=== PATIENT | female | born 1945 | race American Indian/Alaskan Native ===

== ENCOUNTER 2017-02-12 12:22 | Outpatient (CLI) | payer MEDICARE, OTHER ==
--- NOTE | 2017-02-12 14:37 | XRay Report ---
LEFT SHOULDER, 3 VIEWS History: Pain, injury. Findings: Osteopenia is appreciated. Chronic deformity of the distal left clavicle is noted which probably represents a chronic, healed fracture. There is no evidence for acute fracture or dislocation. Mild osteoarthritic changes are noted. The soft tissues are within normal limits. Impression: Suspected chronic injury to the distal left clavicle. Degenerative changes. Osteopenia. No acute process is noted.
== END 2017-02-12 12:23 | disposition home or self-care (01) ==
LOC: XRAY 12:22
PROVIDERS: ATTEND Psychiatry & Neurology Neurology
DX: M19.012 Primary osteoarthritis, left shoulder (principal); M85.812 Other specified disorders of bone density and structure, left shoulder

== ENCOUNTER 2018-04-08 16:17 | Emergency (ER) | payer MEDICARE ==
--- NOTE | 2018-04-08 19:21 | Cat Scan Report ---
FINAL REPORT PROCEDURE: CT HEAD/BRAIN WO CON TECHNIQUE: Computerized tomography of the head was performed without contrast material. HISTORY: Head trauma and pain COMPARISON: No prior studies are available for comparison. FINDINGS: There is no CT evidence of intracranial mass, hemorrhage, acute territorial infarction, or hydrocephalus. The intracranial arteries are symmetric in density. Calvarium is intact. The visualized paranasal sinuses and mastoids are aerated. IMPRESSION: No CT evidence of acute abnormality
[2018-04-08] MEDS ORDERED: TYLENOL ONE (20:12)
[2018-04-08] MEDS ORDERED: TYLENOL PO ONE (20:14)
--- NOTE | 2018-04-08 21:31 | Emergency Department Report ---
ED General Adult HPI - General Chief complaint: Fall Stated complaint: FALL INJURY Time Seen by Provider: 04/08/18 21:29 Source: patient Mode of arrival: Ambulatory Limitations: No Limitations - History of Present Illness Initial comments: 72-year-old woman complains of injury to head, lumbar area back, and right forearm as a result of falling to the ground from a chair height, when the chair she was sitting in at home in her kitchen, while talking on the phone, and the chair simply broke and collapsed beneath her. She reports that she struck her head against a stone on the way down, but had no loss of consciousness, has no focal neurologic symptoms; and she landed on her buttock, with discomfort in her left mid to upper sacral area. She also has some moderate back discomfort, and moderate right neck discomfort extending into her right lateral shoulder. She also struck her right forearm on the way down. She has a past history of a pin in her right arm secondary to a prior fracture, is concerned about injury to this, and has diffuse pain across her lower back as well. She has no bowel or bladder symptoms, but she has some mild to moderate discomfort in her lower abdomen in the suprapubic and inguinal area. Past medical history is significant for blood clots, and she had undescribed throat surgery 40 years ago. Severity scale (0 -10): 10 - Related Data Previous Rx's Medication Instructions Recorded Last Taken Type Acetaminophen/Codeine [Tylenol 1 - 2 tab PO Q6H PRN #20 tab 04/09/18 Unknown Rx /Codeine # 3 tab] Allergies Allergy/AdvReac Type Severity Reaction Status Date / Time No Known Allergies Allergy Verified 05/14/14 10:03 ED Review of Systems ROS: Stated complaint: FALL INJURY Other details as noted in HPI ED Past Medical Hx - Past Medical History Previous Medical History?: Yes Hx Deep Vein Thrombosis: Yes Additional medical history: Varicose veins - Surgical History Past Surgical History?: Yes Additional Surgical History: Throat surgery 40 years ago - Social History Smoking Status: Never Smoker Substance Use Type: None - Medications Home Medications: Home Medications Medication Instructions Recorded Confirmed Last Taken Type Acetaminophen/Codeine [Tylenol 1 - 2 tab PO Q6H PRN #20 tab 04/09/18 Unknown Rx /Codeine # 3 tab] ED Physical Exam - General Limitations: No Limitations ED Course Vital Signs 08/06/1604/08/18 04/08/18 17:17 21:15 23:00 Temperature 37.1 C 36.4 C Pulse Rate 50 L 83 82 Respiratory 16 18 13 Rate Blood Pressure 114/81 124/84 Blood Pressure 127/84 [Right] O2 Sat by Pulse 97 99 97 Oximetry 04/08/18 04/09/18 23:52 01:00 Temperature Pulse Rate 83 Respiratory 18 15 Rate Blood Pressure 129/80 Blood Pressure [Right] O2 Sat by Pulse 96 Oximetry ED Medical Decision Making - Radiology Data Radiology results: report reviewed (CT scan of head without contrast shows no acute go fracture or acute intracranial injury.) interpreted by me: CT cervical spine reviewed by myself, shows no acute abnormalities of the bony spine, no surrounding soft tissue, although there is mild straightening of the lordotic curve. Note is made of moderate facet osteoarthritis. This is generalized. - Medical Decision Making Patient has several contusions, cervical strain, but no fractures, and will be treated symptomatically with analgesics, rest, heating pads. Critical Care Time: No Critical care attestation.: If time is entered above; I have spent that time in minutes in the direct care of this critically ill patient, excluding procedure time. ED Disposition Clinical Impression: Scalp contusion Qualifiers: Encounter type: initial encounter Qualified Code(s): S00.03XA - Contusion of scalp, initial encounter Acute cervical myofascial strain Qualifiers: Encounter type: initial encounter Qualified Code(s): S16.1XXA - Strain of muscle, fascia and tendon at neck level, initial encounter Contusion of forearm, right Qualifiers: Encounter type: initial encounter Qualified Code(s): S50.11XA - Contusion of right forearm, initial encounter Contusion of buttock Qualifiers: Encounter type: initial encounter Qualified Code(s): S30.0XXA - Contusion of lower back and pelvis, initial encounter Disposition: -01 TO HOME OR SELFCARE Is pt being admited?: No Does the pt Need Aspirin: No Condition: Stable Instructions: Muscle Strain (ED), Contusion in Adults (ED) Additional Instructions: Heating pad will also help with areas of discomfort, generally moderate heat, 15 -30 minutes at a time, 3-4 times per day. Gentle stretching and regular activity after about 2 or 3 days will generally helpful to regain limberness and normal mobility Have recheck by your doctor in a week to see how you're doing. Prescriptions: Acetaminophen/Codeine [Tylenol /Codeine # 3 tab] 1 - 2 tab PO Q6H PRN #20 tab PRN Reason: Pain , Severe (7-10) Referrals: DAMIEN MAURO MD [Primary Care Provider] - 3-5 Days Time of Disposition: 03:09
--- NOTE | 2018-04-08 23:26 | XRay Report ---
FINAL REPORT EXAM: XR FOREARM RT HISTORY: pain, injury status post fall from a chair. TECHNIQUE: Frontal and lateral views right forearm FINDINGS: There is no evidence of fracture or subluxation. There appears to be soft tissue swelling on the dorsal aspect of the forearm. IMPRESSION: 1. Soft tissue swelling without evidence of fracture or subluxation
--- NOTE | 2018-04-08 23:28 | XRay Report ---
FINAL REPORT EXAM: XR SPINE LUMBOSACRAL 2-3V HISTORY: pain low back, hx fall TECHNIQUE: Frontal and lateral views lumbar spine and coned-down lateral view lumbosacral junction Comparison: None FINDINGS: Bony alignment is normal. The vertebral heights are maintained. The disc spaces appear to be maintained. There is no evidence of fracture or subluxation. The paraspinous soft tissues are unremarkable. IMPRESSION: 1. No plain film evidence of fracture or subluxation. Lumbar spine fractures can be missed with plain film imaging. If there is a persistent clinical concern for fracture, CT imaging would be helpful.
[2018-04-08] MEDS ORDERED: NORCO 10/325 PO ONE (23:34)
[2018-04-09 01:50] VITALS: BP 129/80
--- NOTE | 2018-04-09 02:31 | XRay Report ---
FINAL REPORT EXAM: XR PELVIS 1-2V HISTORY: sacral pain, fall chair/sitting level TECHNIQUE: AP view of the pelvis and 1 additional coned view of the left hip PRIORS: None. FINDINGS: The pelvic bones are normally mineralized and aligned without focal lesions or fracture. SI joints appear normal. The bilateral hips appear normal. There is no evidence of acute fracture. The soft tissues are unremarkable. IMPRESSION: No evidence of acute injury
--- NOTE | 2018-04-09 03:49 | Cat Scan Report ---
FINAL REPORT EXAM: CT CERVICAL SPINE WO CON HISTORY: neck pain, hx ground level fall TECHNIQUE: Helical axial CT imaging of the cervical spine. Images are reconstructed in the sagittal and coronal planes. PRIORS: None. FINDINGS: The vertebral bodies have normal height and alignment. There is no evidence of fracture or subluxation. There is multilevel degenerative disc disease. The paraspinous soft tissues are unremarkable. 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 IMPRESSION: No evidence of acute fracture or subluxation.
== END 2018-04-09 03:21 | disposition home or self-care (01) ==
LOC: ED 16:17
DX: S16.1XXA Strain of muscle, fascia and tendon at neck level, initial encounter (principal); S00.03XA Contusion of scalp, initial encounter; S50.11XA Contusion of right forearm, initial encounter; S30.0XXA Contusion of lower back and pelvis, initial encounter; Z86.718 Personal history of other venous thrombosis and embolism; Z79.899 Other long term (current) drug therapy; W08.XXXA Fall from other furniture, initial encounter; Y93.89 Activity, other specified; Y99.8 Other external cause status; Y92.000 Kitchen of unspecified non-institutional (private) residence as the place of occurrence of the external cause
CPT/HCPCS: 70450; 72100; 72125; 72170; 93005; 93010